=== PATIENT | female | born 1970 | race Caucasian/White ===

== ENCOUNTER 2018-03-16 00:45 | Emergency (ER) | payer BC ==
[~2018-03-16] VITALS: Ht 160 cm; Wt 58.1 kg
[2018-03-16 00:52] VITALS: Ht 160 cm; Wt 58.1 kg
[2018-03-16 03:15] VITALS: BP 98/64
== END 2018-03-16 03:14 | disposition home or self-care (01) ==
LOC: ED 00:45
DX: J20.9 Acute bronchitis, unspecified (principal); F17.210 Nicotine dependence, cigarettes, uncomplicated; Z98.890 Other specified postprocedural states
CPT/HCPCS: 87804; J1885; Q0092

== ENCOUNTER 2018-08-31 00:54 | Inpatient (IN) | payer BC ==
[~2018-08-31] VITALS: Ht 160 cm; Wt 75.4 kg
[2018-08-31 01:03] VITALS: Ht 160 cm; Wt 75.4 kg
--- NOTE | 2018-08-31 01:07 | NUR ---
PATIENT AAOX4 PRESENTS TO THE ED WITH C/O OF PAIN ON RIGHT PINKY FINGER. PT STS THAT LAST MONDAY, SHE INJURED HER FINGER TAKING LAUNDRY OUT OF THE WASHER. PT THEN WENT TO URGENT CARE WHERE SHE WAS DIAGNOSED WITH A SPRAIN. PATIENT NOTED SWELLING ON RIGHT PINKY WITH ECCHYMOSIS STARTING AT DISTAL TIP AND UNDER NAIL. PATIENT BREATHING EVEN AND UNLABORED, NO OTHER SS OF DISTRESS NOTED. WILL CONTINUE TO MONITOR.
--- NOTE | 2018-08-31 02:26 | NUR ---
MEDICATED PER MD ORDERS
--- NOTE | 2018-08-31 03:40 | NUR ---
PATIENT LYING ON GURNEY- BREATHING EVEN AND UNLABORED. NO SS OF DISTRESS NOTED. WILL CONTINUE TO MONITOR.
--- NOTE | 2018-08-31 04:45 | NUR ---
DR CORONADO BEDSIDE PROVIDING WOUND CARE
--- NOTE | 2018-08-31 05:56 | NUR ---
MD AWARE OF LOW BP AND HR. CONTINUE TO MONITOR.
--- NOTE | 2018-08-31 06:19 | NUR ---
MEDICATED PER MD ORDERS
[2018-08-31 06:34] LABS: BASOPHIL % 0.5 % (0-2); PLATELET COUNT 245 x10^3mcL (130-400); RED CELL DISTRIBUTION WIDTH 13.6 % (11.5-14.5)
--- NOTE | 2018-08-31 07:06 | NUR ---
STARTED KETAMINE DRIP PER MD ORDERS. WILL CONTINUE TO MONITOR.
--- NOTE | 2018-08-31 07:13 | NUR ---
PROVIDED REPORT TO TERRELL JETT FOR FURTHER CARE OF PATIENT.
--- NOTE | 2018-08-31 07:15 | NUR ---
RECEIVED PATIENT IN BED, ROOM 11. PATIENT C/O ON RIGHT PINKY FINGER, S/P DEBRIDMENT. PATIENT IS AAO X 4 (NAME, DATE, TIME AND CONDITION). EYES - BERNICE. MUCUS - PINK. SB ON MONITOR, HR = 50. LUNGS - CTA. BS PRESENT X 4 QUADRANTS. B/L UPPER AND LOWER EXT PULSES PALPABLE. LEFT PINKY WITH DRESSING - INTACT, NO BLEEDING NOTED. PATIENT ABLE TO MOVE OTHER 4 FINGERS ON RIGHT HAND. WILL CONTINUE TO MONITOR.//APR RN
[2018-08-31 07:35] LABS: CALCIUM 7.7 mg/dL (8.5-10.1); CARBON DIOXIDE 22.8 mmol/L (21-32); CHLORIDE SERUM 111 mmol/L (98-107); CREATININE SERUM 0.7 mg/dL (0.6-1.0); GFR1 > 60 mL/min; GLUCOSE SERUM 104 mg/dL (74-106); POTASSIUM SERUM 4.1 mmol/L (3.5-5.1); SODIUM SERUM 143 mmol/L (136-145)
[2018-08-31 07:40] LABS: ALKALINE PHOSPHATASE 68 U/L (46-116); ALT/SGPT 33 U/L (14-59); AST/SGOT 16 U/L (15-37); BILIRUBIN TOTAL 0.2 mg/dL (0.20-1.00)
--- NOTE | 2018-08-31 07:51 | NUR ---
REPORT GIVEN TO TERRELL RODRIGUEZ FOR ROOM 224-B FOR ADMISSION. PATIENT AND SPOUSE MADE AWARE OF ADMISSION TO ROOM 224-B. PATIENT AND SPOUSE VERBALIZED UNDERSTANDING, NO QUESTIONS AT THIS TIME//APR RN
[2018-08-31 08:26] VITALS: BP 102/64
--- NOTE | 2018-08-31 08:30 | NUR ---
RECEIVED PT IN [place] TRANFERED FROM ED W/ CHIEF C/O (R) 5TH FINGER INTRACTABLE PAIN S/P I&D OF (R) 5TH FINGER W/ DRESSING WRAPPED IN [place], CALM AND COPPERATIVE TO POC, RESP EVEN AND NON-LABORED, CHEST RISE SYMMETRICALLY, TELE #9, SINUS MAXIMO, DENIES CP/PRESSURE, PERRLA, NO REDNESS/DRAINAGE, VERBAL, KHMER, C/O PAIN 09/05 TO SURGICAL INCISION SITE, PAIN MED GIVEN PER PRN VIA EMAR, TAKEN WELL, WILL REASSESS, AMBULATORY, CONTINENT, PALP PULSES, CAP REFIL < 3 SEC, ABD FLAT AND NON-TENDER, BS ACTIVE X 4, LAST BM 08/30/18, BREAKFAST PROVIDED, TAKEN WELL, KANWAL LIGHT IN REACH, BED AT LOW POSITION, RAILS X 2, CONTINUE TO MONITOR
[2018-08-31 09:35] VITALS: BP 102/64
--- NOTE | 2018-08-31 09:35 | NUR ---
PT RESTING IN BED, IN NO ACUTE DISTRESS, AM MED GIVEN PER MD ORDER, TAKEN WELL, NO ADVERSED EFFECT NOTED AT THIS TIME, SAFETY PROTOCOL FOLLOWED, CONTINUE TO MONITOR
--- NOTE | 2018-08-31 10:39 | NUR ---
I HAVE REVIEWED THE DATA COLLECTION BY TERRELL KEMP (NAME):FLORIDALMA YUNG ENTERED ON (DATE/TIME):08/31/18 @1034 I CONCUR WITH THE DATA AND ANY EXCEPTIONS OR COMMENTS ARE LISTED BELOW:
--- NOTE | 2018-08-31 10:47 | NUR ---
PT RESTING IN BED EYE CLOSED, IN NO ACUTE DISTRESS, AT BEDSIDE, ICE WATER REPLACED PER PT REQUESTED, ALL NEEDS MET, CONTINUE TO MONITOR
--- NOTE | 2018-08-31 11:33 | NUR ---
PT REQUESTED DOOR CLOSED FOR RESTING PURPOSE, DOOR CLOSED PER REQUEST, AT BEDSIDE, EDUCATED TO CALL FOR HELP USING CALL LIGHT, VERBALLY UNDERSTANDING, CALL LIGHT IN REACH, BED AT LOW POSITION, RAILS X 2, CONTINUE TO MONITOR
[2018-08-31 13:11] VITALS: BP 108/52
--- NOTE | 2018-08-31 13:45 | NUR ---
MEDICATED PT WITH NORCO 1 TAB FOR C/O R 5TH FINGER PAIN AT 8/10 PAIN SCALE.WILL CONTINUE TO MONITOR PT.
--- NOTE | 2018-08-31 14:47 | NUR ---
CALLED JESSICA PIZARRO ABOUT PT STILL IN A LOT OF PAIN AFTER NORCO.CLAIMS PAIN IS AT 9/10 PAIN SCALE. WILL CHANGE PAIN MED.
--- NOTE | 2018-08-31 15:03 | NUR ---
PT IN BED, VERBALLY REPORT PAIN AT 9/10 AT SURGICAL INCISION SITE TO (R) 5TH FINGER, SHARP PAIN, CONSTANT, PERCOCET 5MG 1 TAB GIVEN PER MD ORDER VIA EMAR, TAKEN WELL, REPLACED ICE WATER PITCHER, SPRITE AND CHOCOLATE PUDDING GIVEN PER PT REQUEST, TAKEN WELL, ENCOURAGE USING DEEP BREETHING TECHNIQUE AND RELAX TECHNIQUE FOR PAIN MANAGEMENT, VERBALLY UNDERSTANDING, AT BEDSIDE, ROOM KEPT DARK AND COOL, DOOR CLOSED PER PT AND REQUEST, CALL LIGHT WITHIN REACH, WILL REASSESS PER PROTOCOL, BED AT LOW POSITION, RAILS X 2, CONTINUE TO MONITOR
--- NOTE | 2018-08-31 15:57 | NUR ---
PT IN BED, REASSESSED PAIN, STATED 8/10, THROBBING AND SHARP PAIN, INEFFECTIVE, RECREATION WORKER DESIRE AWARE AND ORDER TO REMOVE THE GENEVIEVE DRESSING AND CHANGE DRESSING TO GAUZE, DRESSING REMOVED, PER RECREATION WORKER ORDER, PT REPORTED RELIEF IN PAIN AND PRESSURE AND ABLE TO MOVE (R) 5TH FINGERB WITH MINIMAL RESTRICTION, REPORTED PAIN LEVEL AT 5/10 AND FELT MORE COMFORTABLE, FAMILY AT BEDSIDE, CALL LIGHT IN REACH, BED AT LOW POSITION, RAILS X 2, CONTINUE TO MONITOR
[2018-08-31 17:16] VITALS: BP 115/62
--- NOTE | 2018-08-31 18:15 | NUR ---
PT SLEEPING IN BED, IN NO ACUTE RESP DISTRESS, IN NO APPARENT DISTRESS/PAIN, CHEST RISE SYMMETRICALLY, ABLE TO MOVE ALL EXTREMITIES, CONTINENT, AMBULATORY, IV SITE PATENT AND INFUSING WELL, NO S/S IF INFECTION NOTED AT THIS TIME, FAMILY AT BEDSIDE, BED AT LOW POSITION, CALL LIGHT IN REACH, RAILS X 2, WILL ENDORSE TO ONCOMING RN
--- NOTE | 2018-08-31 19:00 | NUR ---
PT RECIEVED FROM THE DAY SHIFT RN. PT IS ALERT AND ORIENTED X4, CALM AND COOPERATIVE WITH CARE, NO ACUTE DISTRESS NOTED AT THIS TIME. PT IS CURRENTLY EATING DINNER AND FAMILY IS AT THE BEDSIDE. SAFETY AND COMFORT MEASURES MAINTAINED, BED IN LOWEST POSITION, CALL LIGHT WTIHIN REACH.
--- NOTE | 2018-08-31 20:53 | NUR ---
PT COMPLAINING OF RIGHT FINGER PAIN FIFTH FINGER. TORADOL GIVEN.
[2018-08-31 21:20] VITALS: BP 117/63
--- NOTE | 2018-09-01 00:05 | NUR ---
PT IS AWAKE AND IN BED AT THIS TIME. PT IV INFUSING AND INTACT. PT IS EASILY AROUSABLE WITH VERBAL STIMULUS. SAFETY AND COMFORT MEASURES MAINTAINED, BED IN LOWEST POSITION, CALL LIGHT WITHIN REACH.
--- NOTE | 2018-09-01 02:37 | NUR ---
PT IS RESTING IN BED WITH EYES CLOSED. PT IS EASILY AWAKEN WITH VERBAL STIMULUS, PT HAS BEEN COOPERATIVE WITH CARE. SAFETY AND COMFORT MEASURES MAINTAINED, BED IN LOWEST POSITION, CALL LIGHT WITHIN REACH.
--- NOTE | 2018-09-01 03:57 | NUR ---
PT IS RESTING IN BED WITH EYES CLOSED AT THIS TIME. NO ACUTE DISTRESS NOTED. PT HAS BEEN COOPERATIVE WITH CARE. SAFETY AND COMFORT MEASURES MAINTAINED, BED IN LOWEST POSITION, CALL LIGHT WITHIN REACH.
--- NOTE | 2018-09-01 04:22 | NUR ---
PT COMPLAINING OF RIGHT FIFTH FINGER PAIN. TORADOL IVP GIVEN.
[2018-09-01 05:25] VITALS: BP 90/51
--- NOTE | 2018-09-01 05:29 | NUR ---
PT HAS SLEPT IN INTERMITTENT INTERVALS THROUGHOUT THE SHIFT, PT HAS BEEN CALM AND COOPERATIVE WITH CARE, PT IS ALERT AND ORIENTED X4, PT HAS COMPLAINT OF RIGHT FIFTH FINGER PAIN. PT WAS MEDICATED EARLIER WITH KETOROLAC, IV INFUSING AND INTACT, SAFETY AND COMFORT MEASURES MAINTAINED, BED IN LOWEST POSITION, CALL LIGHT WITHIN REACH, WILL ENDORSE CONTINUITY OF CARE TO THE ONCOMING RN.
[2018-09-01 05:59] LABS: BASOPHIL % 0.6 % (0-2); PLATELET COUNT 202 x10^3mcL (130-400); RED CELL DISTRIBUTION WIDTH 13.6 % (11.5-14.5)
[2018-09-01 06:22] LABS: CALCIUM 7.9 mg/dL (8.5-10.1); CARBON DIOXIDE 26.9 mmol/L (21-32); CHLORIDE SERUM 111 mmol/L (98-107); CREATININE SERUM 0.7 mg/dL (0.6-1.0); GFR1 > 60 mL/min; GLUCOSE SERUM 90 mg/dL (74-106); MAGNESIUM 1.7 mg/dL (1.8-2.4); SODIUM SERUM 144 mmol/L (136-145)
--- NOTE | 2018-09-01 07:15 | NUR ---
RECEIVED PT IN BED, RESTING, VERBAL, ENLISH, AXOX4, DENIED PAIN/HERNANDEZ/PRESSURE, REFUSED N/V/D, NO FACIAL DROOP/SLURRED SPEECH, CALM AND COOPPERATIVE WITH POC AT THIS TIME, PERRLA, NO REDNESS/DRAINAGE, REST EVEN AND NON-LABORED, IN NO ACUTE DISTRESS, CHEST RISE SYMMETRICALLY, LUNGS CTA, RA, 98%, TELE, #9, NSR, HR-81 AT THIS TIME, S/P (R) 5TH FINGER I&D, DRESSING CLEAN AND INTACT, SKIN W/D/C, ABD ROUND AND NON-TENDER TO TOUCH, BS ACTIVE X4, PALP PULSE, CAP REFILL <2S, IV SITE TO (R) AC PATENT AND INFUSING WELL, AMBULATORY, NO EDEMA, CONTINENT, CALL LIGHT IN REACH, BED AT LOW POSITION, RAILS X 2, CONTINUE TO MONITOR
[2018-09-01] MEDS ORDERED: NORCO1 TA2 PO (09:10)
--- NOTE | 2018-09-01 09:21 | NUR ---
NURSING CO-SIGN THE DOCUMENTATION ENTERED BY THE IP HAS BEEN REVIEWED. REVIEWED/CO-SIGNED BY: Debbie Salazar DOCUMENTATION DONE BY: FLORIDALMA YUNG RN.
[2018-09-01 09:28] VITALS: BP 104/58
--- NOTE | 2018-09-01 09:50 | NUR ---
PT IN BED, IN NO ACUTE DISTRESS, VERBAL, AM MEDS GIVEN PER MD ORDER VIA EMAR, TAKEN WELL, NO ASE NOTED AT THIS TIME, FAMILY AT BEDSIDE, QUESTIONS ASKED AND ANSWERED, NO FURTHER CONCERN NEEDS AT THIS TIME, CONTINUE TO MONITOR
--- NOTE | 2018-09-01 11:15 | NUR ---
PT IN BED, FAMILY AT BEDSIDE, QUESTIONS ABOUT WOUND CARE AND F/U CARE ASKED AND ANSWERED, NO FURTHER CONCERNS NEEDED THEN ASKED, VERBALLY UNDERSTANDING, ALL NEEDS MET AT THIS TIME, CONTINUE TO MONITOR
[2018-09-01 12:05] VITALS: BP 103/48
--- NOTE | 2018-09-01 12:08 | NUR ---
PT ASSISTED TO BATHROOM, VOID X1, ASSISTED BACK TO BED, IN NO ACUTE DISTRESS, SAFETY PROTOCOL CHECKED, CONTINUE TO MONITOR
--- NOTE | 2018-09-01 14:49 | NUR ---
PT AXOX4, NOT IN ACUTE DISTRESS, DRESSING CHANGED, PIC TAKEN AND PUT IN CHART, EDUCATION ABOUT S/S OF WOUND INFECTION GIVEN TO PT AND FAMILY MEMBER, VERBALLY UNDERSTANDING, DC PAPER SIGNED AND KEPT IN CHART, PT EDUCATION ABOUT PAIN MANAGEMENT AND PAIN MED GIVEN, VERBALLY UNDERSTANDING, ALL NEEDS MET, PT REFUSED WC ASSISTANCE AT DC, ASSISTED TO LOBBY BY NURSING STAFF
[2018-09-01 14:51] VITALS: BP 140/59
--- NOTE | 2018-09-01 14:52 | NUR ---
IV REMOVED, IV CATH INTACT, NO ACTIVE BLEEDING NOTED, EXTRA GAUZE AND BANDAID GIVEN TO PT PER PT REQUESTED
== END 2018-09-01 14:53 | disposition home or self-care (01) | DRG 605 ==
LOC: ED 00:54 → DU 07:13
PROVIDERS: Emergency Medicine; ADMIT Internal Medicine
PROC: 0X9J3ZZ Drainage of Right Hand, Percutaneous Approach (ICD-10-PCS; principal; 2018-08-31)
DX: S60.946A Unspecified superficial injury of right little finger, initial encounter (principal); E44.0 Moderate protein-calorie malnutrition; I95.9 Hypotension, unspecified; E83.51 Hypocalcemia; D50.9 Iron deficiency anemia, unspecified; R00.1 Bradycardia, unspecified; X58.XXXA Exposure to other specified factors, initial encounter; Y93.89 Activity, other specified; Y92.89 Other specified places as the place of occurrence of the external cause; Y99.8 Other external cause status; Z68.27 Body mass index [BMI] 27.0-27.9, adult
CPT/HCPCS: 90715; G0378; J1885; J2001; J2270; J2405; J3475; J3490; J7030; Q0162

== ENCOUNTER 2018-09-02 10:02 | Emergency (ER) | payer BC ==
[~2018-09-02] VITALS: Ht 160 cm; Wt 71.2 kg
[~2018-09-02 10:02] MED LIST: NORCO1 TA2 PO
[2018-09-02 10:08] VITALS: Ht 160 cm; Wt 71.2 kg
[2018-09-02 11:22] LABS: GFR1 > 60 mL/min; SODIUM SERUM 148 mmol/L (136-145)
[2018-09-02 11:50] LABS: BASOPHIL % 0.4 % (0-2); PLATELET COUNT 150 x10^3mcL (130-400); RED CELL DISTRIBUTION WIDTH 13.4 % (11.5-14.5)
[2018-09-02 11:57] LABS: ALKALINE PHOSPHATASE 39 U/L (46-116); ALT/SGPT 20 U/L (14-59); AST/SGOT 11 U/L (15-37); BILIRUBIN TOTAL 0.13 mg/dL (0.20-1.00); CARBON DIOXIDE 14.6 mmol/L (21-32); CHLORIDE SERUM 120 mmol/L (98-107); CREATININE SERUM 0.3 mg/dL (0.6-1.0)
[2018-09-02 12:02] LABS: ALBUMIN 1.6 g/dL (3.4-5.0); TOTAL PROTEIN, SERUM 3.3 g/dL (6.4-8.2)
[2018-09-02 12:03] LABS: CALCIUM 4.6 mg/dL (8.5-10.1); GLUCOSE SERUM 58 mg/dL (74-106); POTASSIUM SERUM 2.3 mmol/L (3.5-5.1)
[2018-09-02 12:30] LABS: BASOPHIL % 0.5 % (0-2); PLATELET COUNT 260 x10^3mcL (130-400)
[2018-09-02 12:32] LABS: CALCIUM 8.3 mg/dL (8.5-10.1); CHLORIDE SERUM 107 mmol/L (98-107); CREATININE SERUM 0.7 mg/dL (0.6-1.0); GFR1 > 60 mL/min; GLUCOSE SERUM 87 mg/dL (74-106); SODIUM SERUM 141 mmol/L (136-145)
[2018-09-02 12:37] LABS: ALKALINE PHOSPHATASE 78 U/L (46-116); ALT/SGPT 34 U/L (14-59); AST/SGOT 19 U/L (15-37); BILIRUBIN TOTAL 0.32 mg/dL (0.20-1.00); TOTAL PROTEIN, SERUM 6.3 g/dL (6.4-8.2)
[2018-09-02 15:07] VITALS: BP 118/61
== END 2018-09-02 15:07 | disposition left against medical advice (07) ==
LOC: ED 10:02
PROVIDERS: Emergency Medicine
DX: L03.011 Cellulitis of right finger (principal)
CPT/HCPCS: J1885; J2270; J2405; J2543; J7030; Q0092